=== PATIENT | male | born 1980 | race Caucasian/White ===

== ENCOUNTER 2024-03-28 16:22 | Emergency (ER) | payer OTHER ==
[2024-03-28] MEDS: Lidocaine 1% 10 ML MDV ONE (19:22)
[2024-03-28] MEDS: Lidocaine 1% 50 ML MDV INJECT STA (19:22)
[2024-03-28] MEDS: Lidocaine 1% 10 ML MDV INJECT ONE (19:25)
== END 2024-03-28 20:12 | disposition home or self-care (01) ==
LOC: JD.ED 16:22
DX: S61.411A Laceration without foreign body of right hand, initial encounter (principal); I10 Essential (primary) hypertension; J45.909 Unspecified asthma, uncomplicated; E11.9 Type 2 diabetes mellitus without complications; F17.210 Nicotine dependence, cigarettes, uncomplicated; Z86.16 Personal history of COVID-19; Z91.030 Bee allergy status; Z91.018 Allergy to other foods; Z79.82 Long term (current) use of aspirin; Z79.2 Long term (current) use of antibiotics; Z79.899 Other long term (current) drug therapy; W26.8XXA Contact with other sharp object(s), not elsewhere classified, initial encounter
CPT/HCPCS: 12001; 99282; J3490